=== PATIENT | male | born 1955 | race Hispanic/Latino ===

== ENCOUNTER → 2018-11-18 | Outpatient (CLI) | payer OTHER ==
--- NOTE | 2018-11-18 13:35 | Diagnostic Imaging Report ---
EXAM: US AORTA RETROPERITONEAL ZELAYA DATE: 11/18/2018 11:51 AM INDICATION: Atherosclerosis COMPARISON: None FINDINGS: Grayscale and color flow Doppler ultrasound of the abdominal aorta was performed. Aortic diameters: Proximal: 1.5 x 1.2 x 1.5 cm Mid: 1.4 x 1.2 x 1.5 cm Distal: 1.4 x 1.2 x 1.0 cm Proximal common iliac arteries: 0.8 cm right, 0.9 cm left. The IVC is patent. IMPRESSION: Unremarkable appearance of abdominal aorta with no aneurysm. Signed by: Dr. Ernie Jack M.D. on 11/18/2018 1:32 PM
== END ==
LOC: US 10:35
PROVIDERS: ATTEND Family Medicine
DX: I70.90 Unspecified atherosclerosis (principal)
CPT/HCPCS: 76770